=== PATIENT | female | born 1995 | race Caucasian/White ===

== ENCOUNTER → 2017-02-16 | Outpatient (CLI) | payer BC, OTHER ==
[~2017-02-16] MED LIST: APRI1 EACH PO; CIPRO500 MG PO; DIFLUCAN150 MG PO; KEFLEX500 M1 PO; SERTRALINE HCL50 MG PO
== END ==
LOC: ULTRA 08:42
DX: N30.21 Other chronic cystitis with hematuria (principal); N28.1 Cyst of kidney, acquired

== ENCOUNTER → 2017-08-02 | Outpatient (CLI) | payer BC, OTHER | LOC: CAT 08:06 | DX: J32.9 Chronic sinusitis, unspecified (principal) ==

== ENCOUNTER → 2019-02-07 | Outpatient (CLI) | payer BC, OTHER | LOC: CAT 08:10 | DX: J32.9 Chronic sinusitis, unspecified (principal); J34.89 Other specified disorders of nose and nasal sinuses; J33.8 Other polyp of sinus; J34.2 Deviated nasal septum ==